=== PATIENT | male | born 1935 | race Caucasian/White ===

== ENCOUNTER → 2016-12-04 | Outpatient (REF) | payer MEDICARE, OTHER ==
[~2016-12-04] MED LIST: /ESOM40CA OR; ASPI81TA45 OR; ATEN25TA OR; CRES5TAB OR; DIOV160T5 OR; METF500T4 OR; NEUR300C OR; PLAV75TA2 OR; ZOLO25TA OR
[2016-12-05 12:57] LABS: PERCENT SATURATION 41.8 % (19.7-37.4)
== END ==
LOC: M LAB REF 12:00
PROVIDERS: ATTEND Internal Medicine
DX: D50.9 Iron deficiency anemia, unspecified (principal)

== ENCOUNTER → 2017-01-25 | Outpatient (CLI) | payer MEDICARE, OTHER ==
[~2017-01-25] VITALS: Ht 175.3 cm; Wt 106.0 kg
[~2017-01-25] MED LIST changes: +ACET500T37 PO; +ALBU17IN2 INH; +AMLO5TAB2 PO; +ASPIRIN 81 MG CHEW TABLET As Ordered ONE; +ASPIRIN 81 MG CHEW TABLET PO ONE; +FERR325T16 PO; +LIDOCAINE 2% INJ 100 MG/5 ML SDV (FOR ANES.) As Ordered ONE; +NS 1,000 ML IV SCH; +PROPOFOL 200 MG/20 ML VIAL As Ordered ONE; +VITA200016 PO; +VITA500C24 PO; +[UNRECOGNIZED DRUG - CODE] PO
--- NOTE | 2017-01-25 09:02 | ROOR ---
Patient Name: Zak Patel Procedure Date: 01/25/2017 8:33 AM Date of : 1935 Age: 81 Room: [facility] Gender: Male Note Status: Finalized Procedure: Colonoscopy Indications: High risk colon cancer surveillance: Personal history of colonic polyps Providers: Zak ESCAMILLA MD Referring MD: Rebekah Okeefe DO Requesting Provider: Medicines: Monitored Anesthesia Care Complications: No immediate complications. Procedure: Pre-Anesthesia Assessment: - The heart rate, respiratory rate, oxygen saturations, blood pressure, adequacy of pulmonary ventilation, and response to care were monitored throughout the procedure. The Colonoscope was introduced through the anus and advanced to the cecum, identified by appendiceal orifice and ileocecal valve. The colonoscopy was performed without difficulty. The patient tolerated the procedure well. The quality of the bowel preparation was good. Findings: The perianal and digital rectal examinations were normal. (EXAM: Complete, PREP:Adequate) Two sessile polyps were found in the sigmoid colon and ascending colon. The polyps were diminutive in size. These polyps were removed with a cold snare. Resection and retrieval were complete. Multiple medium-mouthed diverticula were found in the sigmoid colon. Small Internal Hemorrhoids. The exam was otherwise without abnormality on direct and retroflexion views. Impression: - Two diminutive polyps in the sigmoid colon and in the ascending colon, removed with a cold snare. Resected and retrieved. - Diverticulosis in the sigmoid colon. - Small Internal Hemorrhoids. - The examination was otherwise normal on direct and retroflexion views. Recommendation: - Telephone endoscopist for pathology results in 2 weeks. - If the pathology report reveals adenomatous tissue, then repeat the colonoscopy for surveillance in 5 years. - Resume aspirin tomorrow and Plavix (clopidogrel) today at prior doses. Zak Escamilla MD Zak ESCAMILLA MD 01/25/2017 9:02:47 AM This report has been signed electronically. Number of Addenda: 0 Note Initiated On: 01/25/2017 8:33 AM Estimated Blood Loss: Estimated blood loss: none.
[2017-01-25 09:20] VITALS: BP 123/72
== END | disposition home or self-care (01) ==
LOC: M OPP 07:10
PROVIDERS: ATTEND Internal Medicine Gastroenterology
DX: Z12.11 Encounter for screening for malignant neoplasm of colon (principal); D12.5 Benign neoplasm of sigmoid colon; D12.2 Benign neoplasm of ascending colon; K57.30 Diverticulosis of large intestine without perforation or abscess without bleeding; K64.8 Other hemorrhoids; I25.10 Atherosclerotic heart disease of native coronary artery without angina pectoris; I35.0 Nonrheumatic aortic (valve) stenosis; Z98.61 Coronary angioplasty status; Z95.5 Presence of coronary angioplasty implant and graft; I10 Essential (primary) hypertension; E78.00 Pure hypercholesterolemia, unspecified; E11.9 Type 2 diabetes mellitus without complications; K21.9 Gastro-esophageal reflux disease without esophagitis; Z88.0 Allergy status to penicillin; Z88.7 Allergy status to serum and vaccine; Z91.040 Latex allergy status; Z88.8 Allergy status to other drugs, medicaments and biological substances; Z79.82 Long term (current) use of aspirin; Z79.01 Long term (current) use of anticoagulants; Z79.899 Other long term (current) drug therapy; Z80.8 Family history of malignant neoplasm of other organs or systems

== ENCOUNTER → 2017-05-30 | Outpatient (REF) | payer MEDICARE, OTHER ==
[~2017-05-30] MED LIST changes: +ACET-683 PO; -ACET500T37 PO; -ASPIRIN 81 MG CHEW TABLET As Ordered ONE; -ASPIRIN 81 MG CHEW TABLET PO ONE; -LIDOCAINE 2% INJ 100 MG/5 ML SDV (FOR ANES.) As Ordered ONE; -NS 1,000 ML IV SCH; +PRAV20TA2; -PROPOFOL 200 MG/20 ML VIAL As Ordered ONE; +TAMSULOSIN
== END ==
LOC: M SMT 17:21
PROVIDERS: ATTEND Nurse Practitioner Women's Health
DX: N40.0 Benign prostatic hyperplasia without lower urinary tract symptoms (principal)
CPT/HCPCS: 51798; 81001; 87086; G0463

== ENCOUNTER 2017-08-07 18:12 | Emergency (ER) | payer MEDICARE, OTHER ==
[~2017-08-07] VITALS: Ht 177.8 cm; Wt 104.5 kg
[~2017-08-07 18:12] MED LIST changes: -PRAV20TA2; -TAMSULOSIN
[2017-08-07] MEDS ORDERED: TAMSULOSIN (18:25)
[2017-08-07] MEDS ORDERED: PRAV20TA2 (18:25)
[2017-08-07 19:46] LABS: BASO % 0.6 % (0.0-1.0); EOS # 0.2 10^3/uL (0.0-0.50); EOS % 2.7 % (0.0-3.0); IMMATURE GRANULOCYTE % 0.3 % (0-0); LYMPH # 1.7 10^3/uL (1.5-4.5); LYMPH % 23.8 % (24.0-44.0); MEAN CORPUSCULAR HEMOGLOBIN 29.7 pg (27.0-33.0); MEAN CORPUSCULAR HGB CONC 32.7 g/dl (32.0-36.5); MEAN CORPUSCULAR VOLUME 90.9 fl (80.0-96.0); MONO % 14.2 % (0.0-5.0); NEUTROPHILS # 4.2 10^3/uL (1.8-7.7); NEUTROPHILS % 58.4 % (36.0-66.0); PLATELET COUNT, AUTOMATED 224 10^3/uL (150-450); RED CELL DISTRIBUTION WIDTH 12.9 % (11.5-14.5); WHITE BLOOD COUNT 7.1 10^3/uL (4.0-10.0)
[2017-08-07 20:02] LABS: INR 0.97
[2017-08-07 20:13] LABS: ALBUMIN/GLOBULIN RATIO 1.29 (1.00-1.93); BILIRUBIN,DIRECT 0.1 MG/DL (0.0-0.2); BILIRUBIN,TOTAL 0.4 MG/DL (0.2-1.0); CALCIUM LEVEL 9.2 MG/DL (8.8-10.2); CREATININE FOR GFR 1.67 MG/DL (0.70-1.30); GLOMERULAR FILTRATION RATE 42.5 (>42); POTASSIUM SERUM 4.5 MEQ/L (3.5-5.1); TOTAL PROTEIN 7.1 GM/DL (6.4-8.2)
[2017-08-07] MEDS ORDERED: ISOVUE-370 76% 100ML VIAL (Q9967) As Ordered ONE (20:43)
[2017-08-07 21:06] VITALS: BP 140/63
--- NOTE | 2017-08-07 22:10 | REPUSA ---
CT of the chest Clinical statement: Chest pain, trauma. Technique: Multiple axial CT images were obtained from the thoracic inlet through the upper abdomen a fter a bolus administration of nonionic intravenous contrast. Coronal and sagittal reconstructions we re also obtained. No comparison is available. Findings: The central pulmonary arteries and thoracic aorta are unremarkable. Thyroid gland is within normal limits. There is no thoracic lymphadenopathy. There are no pericardial or pleural effusions. The lungs are clear. Limited imaging of the upper abdomen does not demonstrate any acute findings. Bi lateral enhancing adrenal nodules are noted. There are no suspicious osseous lesions. Impression: Unremarkable CT examination of the chest. No acute traumatic injury appreciated.
--- NOTE | 2017-08-07 22:10 | REPUSA ---
CLINICAL HISTORY: Trauma. TECHNIQUE: CT chest, abdomen and pelvis with contrast. Total DLP 1127 mGy*cm COMPARISON: No study for comparison is available at the time of interpretation. CT CHEST WITH CONTRAST Great vessels: The aorta is normal caliber. The pulmonary arteries are patent to the extent visualize d. Heart: Normal size, no effusion. Mediastinum: Nontraumatic. Lungs: Clear, without contusion, pneumothorax or effusion. Skeletal thorax: No visible fractures. Shoulder arthrosis, left greater than right. CT ABDOMEN WITH CONTRAST Liver: Nontraumatic. No ductal dilation. Gallbladder: Cholecystectomy. Pancreas: Nontraumatic. No ductal dilation. Spleen: nontraumatic. 12 cm length. Adrenals: Normal. Kidneys: Nontraumatic. No hydronephrosis. Small right renal cyst. Aorta: Nontraumatic. Normal caliber. Bowel loops: Nondistended. Peritoneum: No free air. No ascites. Lumbar spine: Degenerative spondylotic changes at multiple levels. CT PELVIS WITH CONTRAST Pelvis: No visible fracture. Bladder: Nontraumatic. Pelvic organs: Unremarkable. Colon: Multiple colonic diverticula without evidence of diverticulitis. Peritoneum: No free fluid. IMPRESSION: No evidence of acute trauma to the chest, abdomen or pelvis.
[2017-08-07] MEDS ORDERED: OXYCODONE/APAP 5MG/325MG(BULK FOR ED) 1 TABLET PO ONE (22:45)
[2017-08-07] MEDS ORDERED: NS 1,000 ML IV ONE (22:45)
== END 2017-08-08 00:09 | disposition home or self-care (01) ==
LOC: M ED 18:12
DX: S20.212A Contusion of left front wall of thorax, initial encounter (principal); V49.50XA Passenger injured in collision with unspecified motor vehicles in traffic accident, initial encounter; Y92.410 Unspecified street and highway as the place of occurrence of the external cause; Y93.89 Activity, other specified; Y99.9 Unspecified external cause status
CPT/HCPCS: 71260; 74177; 80048; 80076; 85025; 85610; 85730; 86850; 86900; 86901; 93041; 94760; 99284; Q9967

== ENCOUNTER → 2018-01-09 | Outpatient (REF) | payer MEDICARE, OTHER ==
[2018-01-10 14:16] LABS: ANTINUCLEAR ANTIBODIES DIRECT Negative (Negative)
== END ==
LOC: M LAB REF 13:35
DX: F03.90 Unspecified dementia, unspecified severity, without behavioral disturbance, psychotic disturbance, mood disturbance, and anxiety (principal); G60.9 Hereditary and idiopathic neuropathy, unspecified
CPT/HCPCS: 86038

== ENCOUNTER → 2018-04-24 | Outpatient (REF) | payer MEDICARE, OTHER ==
[2018-04-24 14:17] LABS: BASO % 0.5 % (0.0-1.0); EOS # 0.2 10^3/uL (0.0-0.50); EOS % 2.9 % (0.0-3.0); HEMATOCRIT 39.5 % (42.0-52.0); HEMOGLOBIN 12.6 g/dl (13.5-17.5); IMMATURE GRANULOCYTE % 0.5 % (0-3.0); LYMPH # 1.2 10^3/uL (1.5-4.5); LYMPH % 20.6 % (24.0-44.0); MEAN CORPUSCULAR HEMOGLOBIN 28.4 pg (27.0-33.0); MEAN CORPUSCULAR HGB CONC 31.9 g/dl (32.0-36.5); MEAN CORPUSCULAR VOLUME 89.2 fl (80.0-96.0); MONO # 0.7 10^3/uL (0.0-0.8); MONO % 11.8 % (0.0-5.0); NEUTROPHILS # 3.8 10^3/uL (1.8-7.7); NEUTROPHILS % 63.7 % (36.0-66.0); PLATELET COUNT, AUTOMATED 229 10^3/uL (150-450); RED BLOOD COUNT 4.43 10^6/uL (4.30-6.10); RED CELL DISTRIBUTION WIDTH 14.7 % (11.5-14.5); WHITE BLOOD COUNT 5.9 10^3/uL (4.0-10.0)
[2018-04-24 14:31] LABS: VITAMIN B12 LEVEL 1070 PG/ML
[2018-04-24 14:32] LABS: FOLATE 7.7 NG/ML
[2018-04-24 14:46] LABS: ALBUMIN 3.9 GM/DL (3.2-5.2); ALBUMIN/GLOBULIN RATIO 1.15 (1.00-1.93); ALKALINE PHOSPHATASE 73 U/L (45-117); ALT/SGPT 25 U/L (12-78); ANION GAP 10 MEQ/L (8-16); AST/SGOT 18 U/L (7-37); BILIRUBIN,TOTAL 0.6 MG/DL (0.2-1.0); BLOOD UREA NITROGEN 28 MG/DL (7-18); CALCIUM LEVEL 8.7 MG/DL (8.8-10.2); CARBON DIOXIDE LEVEL 24 MEQ/L (21-32); CHLORIDE LEVEL 105 MEQ/L (98-107); CREATININE FOR GFR 1.48 MG/DL (0.70-1.30); GLOMERULAR FILTRATION RATE 48.7 (>35); GLUCOSE, FASTING 98 MG/DL (70-100); POTASSIUM SERUM 4.4 MEQ/L (3.5-5.1); RHEUMATOID FACTOR QUANT < 10.0 IU/ML (<15.0); SODIUM LEVEL 139 MEQ/L (136-145); THYROID STIMULATING HORMONE 0.702 uIU/ML (0.358-3.740); TOTAL PROTEIN 7.3 GM/DL (6.4-8.2)
[2018-04-24 15:21] LABS: ERYTHROCYTE SEDIMENTATION RATE 10 mm/hr (0-20)
[2018-04-28 14:49] LABS: ALBUMIN 4.34 GM/DL (3.29-5.55); ALBUMIN % 59.4 % (55.8-66.1); ALPHA-1-GLOBULIN % 3.8 % (2.9-4.9); ALPHA-1-GLOBULINS 0.28 GM/DL (0.17-0.41); ALPHA-2-GLOBULINS 0.82 GM/DL (0.42-0.99); ALPHA-2-GLOBULINS % 11.2 % (7.1-11.8); BETA-1-GLOBULINS 0.53 GM/DL (0.28-0.60); BETA-1-GLOBULINS % 7.2 % (4.7-7.2); BETA-2-GLOBULINS 0.37 GM/DL (0.19-0.55); GAMMA GLOBULIN % 13.4 % (11.1-18.8); GAMMA GLOBULINS 0.98 GM/DL (0.65-1.58)
[2018-05-03 08:05] LABS: ANTI DOUBLE STRAND-DNA AB 1 IU/mL (0-9); ANTINUCLEAR ANTIBODIES DIRECT Negative (Negative); CERULOPLASMIN 22.7 mg/dL (16.0-31.0); COPPER PLASMA 90 ug/dL (72-166); LEAD BLOOD ADULT 1 ug/dL (0-19); Lyme Disease IgG/IgM Antibodie <0.91 ISR (0.00-0.90); Lyme Disease IgM Ab Quantitati <0.80 index (0.00-0.79); MERCURY LEVEL 1.5 ug/L (0.0-14.9); SJOGREN'S ANTI SS-A <0.2 AI (0.0-0.9); SJOGREN'S ANTI SS-B <0.2 AI (0.0-0.9); VITAMIN B1 LEVEL WHOLE BLOOD 106.4 nmol/L (66.5-200.0); VITAMIN B6,PYRIDOXAL PHOSPHATE 9.4 ug/L (5.3-46.7); VITAMIN E(ALPHA TOCOPHEROL) 8.1 mg/L (9.0-29.0); VITAMIN E(GAMMA TOCOPHEROL) 1.6 mg/L (0.5-4.9)
== END ==
LOC: M LABNEURO 10:29
DX: G31.84 Mild cognitive impairment of uncertain or unknown etiology (principal); Z79.01 Long term (current) use of anticoagulants
CPT/HCPCS: 82525

== ENCOUNTER 2018-11-20 11:07 | Emergency (ER) | payer MEDICARE, OTHER ==
[~2018-11-20] VITALS: Ht 177.8 cm; Wt 98.6 kg
[~2018-11-20 11:07] MED LIST changes: -AMLO5TAB2 PO; +AMLO5TAB6 PO; +PRAV20TA2; +TAMSULOSIN
[2018-11-20] MEDS ORDERED: MAG400TA (11:17)
[2018-11-20] MEDS ORDERED: MEMA1TAB (11:17)
[2018-11-20] MEDS ORDERED: LOSA50TA88 (11:17)
[2018-11-20] MEDS ORDERED: VITA10002 PO (12:20)
[2018-11-20] MEDS ORDERED: ADACEL/BOOSTRIX VACCINE (DIPHTH/PERTUSS/ACELL/TETANUS)0.5ML SYR (90715) IM ONE (13:00)
[2018-11-20] MEDS ORDERED: NORCO, ANEXSIA 5/325MG TABLET (HYDROcodone/ACETAMINOPHEN) PO ONE (13:00)
--- NOTE | 2018-11-20 13:32 | REP ---
Left rib series: Five views including PA chest: History: Injury in a fall. Comparison study: August 15, 2016. Findings: PA chest radiograph shows no evidence of pneumothorax or hydrothorax. Mediastinum is not widened. Heart size is normal. There are degenerative changes in the thoracic spine. Multiple views of the left rib cage demonstrate acute nondisplaced fractures involving the left posterolateral 9th, 10th, and 11th ribs. There are degenerative changes at the left shoulder. Impression: Left 9th through 11th rib fractures nondisplaced, posterolateral. No complication seen. Electronically Signed by Mayur Fishman MD 11/20/2018 10:22 P
[2018-11-20] MEDS ORDERED: NORCOTAB PO (14:10)
[2018-11-20 14:33] VITALS: BP 139/64
== END 2018-11-20 14:48 | disposition home or self-care (01) ==
LOC: M ED 11:07
DX: S22.42XA Multiple fractures of ribs, left side, initial encounter for closed fracture (principal); S51.802A Unspecified open wound of left forearm, initial encounter; W00.1XXA Fall from stairs and steps due to ice and snow, initial encounter; Y92.099 Unspecified place in other non-institutional residence as the place of occurrence of the external cause; Y93.9 Activity, unspecified; Y99.9 Unspecified external cause status; E11.9 Type 2 diabetes mellitus without complications; I25.10 Atherosclerotic heart disease of native coronary artery without angina pectoris; I10 Essential (primary) hypertension; E78.5 Hyperlipidemia, unspecified; J45.909 Unspecified asthma, uncomplicated; Z79.82 Long term (current) use of aspirin; Z79.899 Other long term (current) drug therapy; Z88.7 Allergy status to serum and vaccine; Z88.0 Allergy status to penicillin; Z91.040 Latex allergy status

== ENCOUNTER → 2020-06-24 | Outpatient (REF) | payer MEDICARE, OTHER ==
[~2020-06-24] MED LIST changes: -/ESOM40CA OR; +AMLO1TAB24 PO; -AMLO5TAB6 PO; +CYAN100049 PO; +HYDR-3715 PO; +LOSA50TA88; +MAG400TA; +MEMA1TAB3; +NEXI1CAP3 OR
[2020-06-27 14:20] LABS: PERCENT SATURATION 15.3 % (19.7-50.0)
== END ==
LOC: M LAB REF 11:18
PROVIDERS: ATTEND Internal Medicine
DX: D64.9 Anemia, unspecified (principal)

== ENCOUNTER → 2021-03-21 | Outpatient (REF) | payer MEDICARE, OTHER ==
[~2021-03-21] MED LIST changes: +CHLO125TA; +DONE10TA90; +ESOM40CA35; +FERR324T21 PO; -FERR325T16 PO; -MAG400TA; +MAGN400T35
== END ==
LOC: M LAB REF 20:11
PROVIDERS: ATTEND Physician Assistant Medical
DX: R19.7 Diarrhea, unspecified (principal)

== ENCOUNTER → 2021-03-29 | Outpatient (REF) | payer MEDICARE, OTHER | LOC: M LAB REF 16:10 | PROVIDERS: ATTEND Internal Medicine | DX: R63.4 Abnormal weight loss (principal) ==

== ENCOUNTER → 2021-04-21 | Outpatient (CLI) | payer MEDICARE, OTHER ==
[~2021-04-21] MED LIST changes: +E-Z-GAS II EFFERVESCENT PACKET (SODIUM BICARB./CITRIC ACID/SIMETHICONE) As Ordered ONE; +E-Z-HD 98% w/w 340GM SUSP BTL As Ordered ONE; +E-Z-PAQUE 96% w/w SUSP 176GM BTL As Ordered ONE
--- NOTE | 2021-04-28 11:04 | REP ---
INDICATION: DYSPHAGIA, FAILURE TO THRIVE. COMPARISON: None. TECHNIQUE: The procedure was performed under the direct supervision of Dr. Samuel. The images were reviewed with Dr. Samuel. Liquid barium was given in the erect position as well as liquid barium in the prone oblique position in order to perform a single contrast upper GI examination. A combination of fluoroscopy, spot films and last image hold technology was utilized. 2.3 minutes of fluoro time was utilized for this procedure. FINDINGS: The manager combination film shows no organomegaly or pathological masses. The intestinal gas pattern is non-specific. The oral and pharyngeal stages of deglutition are unremarkable. During esophageal transport there are tertiary waves demonstrated. There is no esophagitis, stricture, mucosal ring or hiatal hernia. Gastroesophageal reflux is not demonstrated on this examination. Within the stomach there are thickened folds which may represent gastritis. There is no melanie ulcer identified. Within the duodenum there are thickened folds which may represent duodenitis. There is no melanie ulcer identified. The visualized portion of the proximal small bowel appears normal in course and caliber. IMPRESSION: 1. There are thickened folds in the stomach which may represent gastritis. 2. There are thickened folds in the duodenum which may represent duodenitis. 3. Tertiary waves. <Electronically signed by Genaro Malone > 04/21/21 1656 <Electronically signed by Ramone Samuel > 04/28/21 1100
== END ==
LOC: M RAD 09:31
PROVIDERS: ATTEND Internal Medicine
DX: R13.10 Dysphagia, unspecified (principal)

== ENCOUNTER → 2021-06-07 | Outpatient (REF) | payer MEDICARE, OTHER ==
[~2021-06-07] MED LIST changes: -E-Z-GAS II EFFERVESCENT PACKET (SODIUM BICARB./CITRIC ACID/SIMETHICONE) As Ordered ONE; -E-Z-HD 98% w/w 340GM SUSP BTL As Ordered ONE; -E-Z-PAQUE 96% w/w SUSP 176GM BTL As Ordered ONE
[2021-06-08 11:36] LABS: PERCENT SATURATION 10.5 % (19.7-50.0)
== END ==
LOC: M LAB REF 09:52
PROVIDERS: ATTEND Internal Medicine
DX: D64.9 Anemia, unspecified (principal)

== ENCOUNTER 2021-07-12 06:48 | Inpatient (IN) | payer MEDICARE, OTHER ==
[~2021-07-12] VITALS: Ht 182.9 cm; Wt 90.0 kg
[~2021-07-12 06:48] MED LIST changes: -DONE10TA90; +DONE10TA90 PO; -ESOM40CA35; +ESOM40CA35 PO; -LOSA50TA88; +LOSA50TA88 PO; -MAGN400T35; +MAGN400T35 PO
[2021-07-12] MEDS: NS 1,000 ML IV SCH ×2 (07:35→17:04)
[2021-07-12 08:04] LABS: HEMATOCRIT 38.1 % (42.0-52.0); HEMOGLOBIN 11.9 g/dl (13.5-17.5); LYMPH # 0.4 10^3/uL (1.5-5.0); LYMPH % 13.8 % (24.0-44.0); MEAN CORPUSCULAR HEMOGLOBIN 28.4 pg (27.0-33.0); MEAN CORPUSCULAR HGB CONC 31.2 g/dl (32.0-36.5); MEAN CORPUSCULAR VOLUME 90.9 fl (80.0-96.0); MONO # 0.2 10^3/uL (0.0-0.8); MONO % 8.3 % (2.0-8.0); NEUTROPHILS % 77.5 % (36.0-66.0); PLATELET COUNT, AUTOMATED 126 10^3/uL (150-450); RED BLOOD COUNT 4.19 10^6/uL (4.30-6.10); WHITE BLOOD COUNT 2.5 10^3/uL (4.0-10.0)
--- NOTE | 2021-07-12 08:05 | REP ---
INDICATION: trauma. COMPARISON: None. TECHNIQUE: Left {lower extremity duplex venous scanning is performed from the groin to the ankle level. FINDINGS: The deep veins are anechoic and fully compressible from the groin to the popliteal fossa in the left lower extremity. Color flow imaging is homogeneous. Spectral Doppler interrogation demonstrates intact respiratory variation in flow and normal manual augmentation of flow. There is no evidence of deep vein thrombosis above the knee. There is no evidence of DVT in the visualized calf veins. Doppler interrogation of the contralateral common femoral vein shows normal symmetric respiratory phasicity. IMPRESSION: No evidence of DVT in the left lower extremity femoropopliteal veins. No DVT in the visible portions of the calf veins. <Electronically signed by Felix Fishman > 07/12/21 0823
[2021-07-12 08:19] LABS: OSMOLALITY SERUM 288 MOSM/KG (280-301)
[2021-07-12 08:22] LABS: ALBUMIN 2.8 GM/DL (3.2-5.2); ALT/SGPT 18 U/L (12-78); BILIRUBIN,DIRECT 0.2 MG/DL (0.0-0.2); BILIRUBIN,TOTAL 0.5 MG/DL (0.2-1.0); BLOOD UREA NITROGEN 20 MG/DL (7-18); CALCIUM LEVEL 8.3 MG/DL (8.8-10.2); CARBON DIOXIDE LEVEL 30 MEQ/L (21-32); CHLORIDE LEVEL 105 MEQ/L (98-107); CK-MB VALUE MASS < 1.0 NG/ML (<3.6); CPK CREATINE PHOSPHOKINASE 112 U/L (39-308); CREATININE FOR GFR 1.25 MG/DL (0.70-1.30); GLOMERULAR FILTRATION RATE 58.7 (>35); GLUCOSE, FASTING 96 MG/DL (70-100); MB/CK RELATIVE INDEX 0.89 (< OR =4); POTASSIUM SERUM 4.1 MEQ/L (3.5-5.1); SODIUM LEVEL 142 MEQ/L (136-145); TOTAL PROTEIN 6.1 GM/DL (6.4-8.2); TROPONIN I 0.06 NG/ML (< 0.10)
[2021-07-12 08:54] LABS: RSV AMPLIFICATION NEGATIVE (NEGATIVE)
--- NOTE | 2021-07-12 09:09 | REP ---
INDICATION: trauma COMPARISON: None TECHNIQUE: Four views. No sunrise view was obtained. The patient was unable to flex the knee in order to obtain a sunrise view. FINDINGS: The compartments are symmetric and relatively well maintained. There does appear to be mild patellofemoral joint space narrowing, however, assessment is limited due to the lack of a sunrise view. There is no evidence of an acute fracture, dislocation, or subluxation. Without a sunrise view a subtle patellar fracture cannot be completely ruled out. IMPRESSION: No acute osseous abnormality and limitations as described above. <Electronically signed by Mir Carver > 07/12/21 0924
--- NOTE | 2021-07-12 10:49 | REP ---
INDICATION: trauma. COMPARISON: Comparison MRI study of the brain is from August 15, 2017. TECHNIQUE: Helical scanning is acquired. 5 mm axial images were reformatted. Coronal MPR images were generated. FINDINGS: Preliminary digital washcoat wiper radiograph is unremarkable. The patient is edentulous. On bone window settings there is no evidence of skull fracture. No scalp hematoma is appreciated. There is some partial filling of the ethmoid air cells bilaterally consistent with paranasal sinus mucosal changes. There is moderate vascular calcification in the distal internal carotid arteries bilaterally. On soft tissue window settings, there is moderate generalized volume loss and concordant ventricular enlargement. This is unchanged from the comparison MRI study. There are mild small vessel changes in the periventricular white matter. There is no evidence of intracranial hemorrhage. No extra-axial fluid collection is seen. No mass, edema, or midline shift is seen. No acute infarction is appreciated. IMPRESSION: Generalized volume loss and vascular calcification. Mild small vessel changes. No skull fracture or intracranial injury. No acute intracranial abnormality. <Electronically signed by Felix Fishman > 07/12/21 1491
[2021-07-12] MEDS ORDERED: GLUCOSE 4GM CHEW TABLET PO PRN (11:10)
[2021-07-12] MEDS ORDERED: GLUCAGON INJ 1MG VIAL SC PRN (11:10)
[2021-07-12] MEDS ORDERED: DEXTROSE 50% 50 ML SYRINGE IV PRN (11:10)
--- NOTE | 2021-07-12 11:33 | REP ---
INDICATION: COVID POSITIVE WEAKNESS R/O PNEUMONIA. COMPARISON: Comparison chest x-ray November 20, 2018. TECHNIQUE: Portable upright AP chest radiograph. FINDINGS: The lungs are symmetrically aerated. No infiltrate is appreciated. The pleural angles are sharp. The heart is not enlarged. There is fullness in the right mediastinum at the thoracic inlet indenting the right lateral contour the trachea consistent with enlargement of the right thyroid. This is unchanged. There is radiolucency at the left apex suggesting a small left-sided pneumothorax. A skin fold is also possibility. EKG electrodes are seen. IMPRESSION: No infiltrate seen. Possible very small left-sided pneumothorax versus skin fold. Otherwise no acute disease. Stable right thyroid enlargement. <Electronically signed by Felix Fishman > 07/12/21 0093
[2021-07-12] MEDS ORDERED: VITA200048 PO (12:37)
[2021-07-12] MEDS ORDERED: ROSU5TAB5 PO (12:37)
[2021-07-12] MEDS ORDERED: TRAZ-252 PO (12:37)
[2021-07-12] MEDS ORDERED: PROAAER10 INH (12:37)
[2021-07-12] MEDS ORDERED: ECOT81TA5 PO (12:38)
[2021-07-12 12:39] LABS: INR 1.03; PARTIAL THROMBOPLASTIN TIME 35.5 SECONDS (25.9-37.0); PROTHROMBIN TIME 13.9 SECONDS (12.7-14.5)
[2021-07-12 12:42] LABS: D-DIMER QUANT 694.46 ng/ml (<500)
[2021-07-12] MEDS ORDERED: TAMS1CAP17 PO (12:44)
[2021-07-12] MEDS ORDERED: MEMA10TA19 PO (12:44)
[2021-07-12] MEDS ORDERED: RA T500C2 PO (12:48)
[2021-07-12] MEDS ORDERED: FERR325T82 PO (12:48)
[2021-07-12] MEDS ORDERED: HOME MED LIST COMPLETE! XX SCH (12:55)
[2021-07-12 12:57] LABS: ALBUMIN 2.7 GM/DL (3.2-5.2); BILIRUBIN,DIRECT 0.2 MG/DL (0.0-0.2); BILIRUBIN,TOTAL 0.5 MG/DL (0.2-1.0); C REACTIVE PROTEIN QUANTITATIV 2.83 MG/DL (0.00-0.30); MB/CK RELATIVE INDEX 1.35 (< OR =4); TOTAL PROTEIN 5.9 GM/DL (6.4-8.2); TROPONIN I 0.05 NG/ML (< 0.10)
[2021-07-12 13:08] VITALS: BP 190/72
[2021-07-12] MEDS: HumaLOG INSULIN (NovoLOG) PER UNIT SC SCH ×3 (13:11→20:51)
[2021-07-12 13:22] VITALS: BP 119/69
--- NOTE | 2021-07-12 14:57 | HPEPDOC ---
[facility] Medical History & Physical Date of Admission Jul 12, 2021 Date of Service: Jul 12, 2021 History and Physical CHIEF COMPLAINT: Recurrent falls, weakness ,leg pain Both and daughter have Covid,unable to care for the patient at home HISTORY OF PRESENT ILLNESS: Patient has advanced dementia history is obtained from the patient's 85-year-old male sent by ambulance to the emergency room for evaluation of re current falls and generalized weakness. says that she was diagnosed with coronavirus for the past week and the patient has been exposed to her. He has been increasingly weak with recurrent falls and has had a cough which is nonproductive without fever chills today he has had one episode of diarrhea which was nonbloody nonmucousy without abdominal pain nausea or vomiting. His appetite has been the same he denies any anosmia, dysgeusia, headache, muscle aches, chest pain pressure tightness or shortness of breath. Patient's receive monoclonal antibodies but remains weak and unable to care for the patient at home . Her daughter and son-in-law are both coronavirus positive as well and unable to take care of the patient. Patient's is requesting [facility] placement permanently as she is unable to care for him at home now. Patient denies any prodromal symptoms prior to his fall He has not had any dizziness lightheadedness palpitations prior to the fall. He otherwise denies any changes in appetite bowel habits flank pain dysuria urgency frequency. He complains of generalized weakness and bilateral knee pain status post fall and gait instability needing a walker and 1 person assistance at home. He denies any rash unusual lumps or masses joint pains aside from bilateral knees changes in vision hearing tinnitus vertigo bright red blood per rectum melena black tarry stools coffee-ground emesis. In the emergency room patient was found to be positive for coronavirus, but he remained afebrile with chest x-ray no infiltrate, probable very small pneumothorax versus skinfold. Hospitalist was asked to admit the patient for recurrent falls, gait instability, generalized weakness, bilateral knee pain status post fall, and positive for coronavirus. PAST MEDICAL HISTORY: Coronary artery disease stent placement to LAD 1997, dyslipidemia, type 2 diabetes, arterial hypertension, glaucoma, hiatal hernia, cataract, enlarged prostate with lower urinary tract symptoms, sigmoid colon polyps status post clip, hemorrhoids, herniated disc, depression, left leg gangrene with skin grafting PAST SURGICAL HISTORY: Cataract surgery, laparoscopic cholecystectomy in 2004, hemorrhoidectomy, colonoscopy with sigmoid colon polypectomy and clip, tonsillectomy, back surgery, skin grafting on the left leg secondary to gangrene SOCIAL HISTORY: Lives with at home who has coronavirus and unable to care for him, retired, patient was a smoker but quit in 1995, denies alcohol use or recreational drug use. FAMILY HISTORY: Father with CAD/myocardial infarction in his 70s, valvular disease which was inoperable, and diabetic mother of bone cancer in her 70s. ALLERGIES: Please see below. REVIEW OF SYSTEMS: 10 point review of systems negative aside from positive findings in HPI HOME MEDICATIONS: Please see below. PHYSICAL EXAMINATION: VITAL SIGNS: See below GENERAL APPEARANCE: Appears his stated age in no distress HEENT: No JVD moist mucous membranes positive thyromegaly no carotid bruit CARDIOVASCULAR: S1-S2 regular rate rhythm no S3 LUNGS: Clear to auscultation no wheezing rales or rhonchi air entry is equal bilaterally ABDOMEN: Positive bowel sounds soft nontender nondistended EXTREMITIES: No cyanosis clubbing or pitting edema NEUROLOGIC: Awake alert oriented to person only no expressive or receptive aphasia Speech is fluent. Face is symmetric. Tongue and uvula Are midline. Motor function is 5 out of 5 x 4 extremities gait was not tested negative Babinski bilaterally no pronator drift no dysmetria LABORATORY DATA: See below. IMAGING: See below MICROBIOLOGY: Please see below. ASSESSMENT: 85-year-old male sent by ambulance to the emergency room for evaluation of recurrent falls and generalized weakness. says that she was diagnosed with coronavirus for the past week and the patient has been exposed to her. He has been increasingly weak with recurrent falls and has had a cough which is nonproductive without fever chills today he has had one episode of diarrhea which was nonbloody nonmucousy without abdominal pain nausea or vomiting. His appetite has been the same he denies any anosmia, dysgeusia, headache, muscle aches, chest pain pressure tightness or shortness of breath. Patient's receive monoclonal antibodies but remains weak and unable to care for the patient at home . Her daughter and son-in-law are both coronavirus positive as well and unable to take care of the patient. Patient's is requesting mcf[facility] placement permanently as she is unable to care for him at home now. Patient denies any prodromal symptoms prior to his fall He has not had any dizziness lightheadedness palpitations prior to the fall. He otherwise denies any changes in appetite bowel habits flank pain dysuria urgency frequency. He complains of generalized weakness and bilateral knee pain status post fall and gait instability needing a walker and 1 person assistance at home. He denies any rash unusual lumps or masses joint pains aside from bilateral knees changes in vision hearing tinnitus vertigo bright red blood per rectum melena black tarry stools coffee-ground emesis. In the emergency room patient was found to be positive for coronavirus, but he remained afebrile with chest x-ray no infiltrate, probable very small pneumothorax versus skinfold. Hospitalist was asked to admit the patient for recurrent falls, gait instability, generalized weakness, bilateral knee pain status post fall, and positive for coronavirus. is requesting [facility] placement. Coronavirus positive -Close contacts including the and daughter which are his primary caregivers have tested positive for coronavirus -Monitor for worsening respiratory symptoms, hypoxia -Continuous pulse oximetry -Monitor cardiac and inflammatory markers -Inpatient monoclonal antibody infusion if qualifies Debility with recurrent falls and generalized weakness -Exacerbated by coronavirus -PT OT fall precautions and assisted ambulation only -Activity as tolerated Bilateral knee pain status post fall -Imaging study showed no acute fracture, subluxation -As needed pain medications -Assisted ambulation only -Fall precautions Abnormal CXR -very small ptx vs skin fold -check daily cxr to monitor. if enlarging ptx, will need ct chest and will call thoracic surgery for ptx mgt w chest tube. -monitor for hypoxia or respiratory distress. Pancytopenia -Check peripheral blood smear rule out myelodysplastic syndrome -Check B12 and folate levels -No rash to suspect parvovirus B19 infection -No acute indication for RBC or platelet transfusion -Serial CBC monitoring Coronary artery disease stent placement to LAD 1997 -Resumed home meds -Denies cardiac ischemic symptoms dyslipidemia -Resumed home meds Thyromegaly -check thyroid function tests -thyroid us ordered type 2 diabetes -Consistent carbohydrate diet -Fingersticks [facility] with [facility] sliding scale coverage per protocol -Hypoglycemic protocol arterial hypertension -Resumed home meds glaucoma -Resumed home meds hiatal hernia -Resumed home meds enlarged prostate with lower urinary tract symptoms -Resumed home meds sigmoid colon polyps status post clip, hemorrhoids, status post hemorrhoidectomy -Resumed home meds herniated disc, status post back surgery -Resumed home meds depression -Resumed home meds History of left leg gangrene with skin grafting -Resumed home meds code status: DO NOT INTUBATE Per the ,patient "would not want a machine to keep him as a vegetable. I'm not sure about the heart." will discuss with her daughter and son-in-law if the patient had a previous discussion with them about cpr. HCP: DL STANTON [phone] Disposition: PFS consulted for placement. requesting placement. Vital Signs Vital Signs Date Time Temp Pulse Resp B/P (MAP) Pulse Ox O2 Delivery O2 Flow Rate FiO2 07/12/21 09:48 55 16 07/12/21 09:45 184/72 (109) 07/12/21 09:33 96 Room Air 07/12/21 07:50 99.3 Laboratory Data Labs 24H Laboratory Tests 2 07/12/21 07:15: Immature Granulocyte % (Auto) 0.4, Neutrophils (%) (Auto) 77.5H, Lymphocytes (%) (Auto) 13.8L, Monocytes (%) (Auto) 8.3H, Eosinophils (%) (Auto) 0.0, Basophils (%) (Auto) 0.0, Neutrophils # (Auto) 2.0, Lymphocytes # (Auto) 0.4L, Monocytes # (Auto) 0.2, Eosinophils # (Auto) 0.0, Basophils # (Auto) 0.0, Nucleated Red Blood Cells % (auto) 0.0, Anion Gap 7L, Glomerular Filtration Rate 58.7, Osmolality 288, Lactic Acid Level 0.9, Calcium Level 8.3L, Total Bilirubin 0.5, Direct Bilirubin 0.2, Aspartate Amino Transf (AST/SGOT) 25, Alanine Aminotransferase (ALT/SGPT) 18, Alkaline Phosphatase 66, Ammonia < 10, Total Creatine Kinase 112, Creatine Kinase MB < 1.0, Creatine Kinase MB Relative Index 0.89, Troponin I 0.06, Total Protein 6.1L, Albumin 2.8L, Albumin/Globulin Ratio 0.8 07/12/21 07:21: Coronavirus (COVID-19)(PCR) POSITIVEA, Influenza Type A (RT-PCR) NEGATIVE, Influenza Type B (RT-PCR) NEGATIVE, Respiratory Syncytial Virus (PCR) NEGATIVE CBC/BMP Laboratory Tests 07/12/21 07:15 Home Medications Scheduled Aspirin (Ecotrin) 81 Mg Tablet.dr, 81 MG PO DAILY Cyanocobalamin (Vitamin B-12) (Vitamin B-12) 1,000 Mcg Tab, 1,000 MCG PO DAILY Donepezil HCl (Donepezil HCl) 10 Mg Tablet, 10 MG PO QHS Ergocalciferol (Vitamin D2) (Vitamin D2) 50 Mcg Capsule, 50 MCG PO DAILY Esomeprazole Magnesium (Esomeprazole Magnesium Dr) 40 Mg Capsule.dr, 40 MG PO DAILY Ferrous Sulfate (Iron) 325 Mg Tablet, 325 MG PO DAILY Losartan Potassium (Losartan Potassium) 50 Mg Tab, 50 MG PO QHS Magnesium Oxide (Magnesium Oxide) 400 Mg Tab, 400 MG PO BID Memantine HCl (Memantine HCl) 10 Mg Tablet, 10 MG PO BID Rosuvastatin Calcium (Rosuvastatin Calcium) 5 Mg Tablet, 5 MG PO QHS Tamsulosin Hcl (Tamsulosin HCl) 0.4 Mg Capsule, 0.4 MG PO DAILY Trazodone HCl (Trazodone HCl) 50 Mg Tablet, 50 MG PO QHS Turmeric Root Extract (Turmeric) 500 Mg Capsule, 500 MG PO DAILY Scheduled PRN Acetaminophen (Acetaminophen) 500 Mg Tab, 500 MG PO Q6HP PRN for PAIN LEVEL 1-4 Albuterol Sulfate (Proair Hfa) 8.5 Gm Hfa.aer.ad, 2 PUFF INH Q4H PRN for SOB/WHEEZING Allergies Coded Allergies: Influenza Virus Vaccines (Verified Allergy, Unknown, 03/17/21) Penicillins (Verified Allergy, Unknown, 03/17/21) latex (Verified Allergy, Unknown, 03/17/21) A-FIB/CHADSVASC A-FIB History Current/History of A-Fib/PAF?: No Current PO Anticoag Therapy: No Age/Risk Factor Scoring CHADSVASC: CHADSVASC Response (Comments) Value Age Risk Factor Age >/= 75 years old 2 Gender Risk Factor Male 0 Hx of CHF No 0 Hx of HTN Yes 1 Hx of Stroke/TIA/or VTE No 0 Hx of Diabetes No 0 Hx of Vascular Disease No 0 Total 3 Treatment Treatment ordered: NONE TAURUS MCGRATH MD Jul 12, 2021 11:30
[2021-07-12] MEDS ORDERED: ALBUTEROL 90 MCG/ACT 8GM HFA INHALER INH PRN (15:00)
[2021-07-12] MEDS: TAMSULOSIN 0.4 MG CAP PO SCH (16:58)
[2021-07-12] MEDS: OMEPRAZOLE 20 MG CAP PO SCH (16:59)
[2021-07-12] MEDS: DONEPEZIL 5 MG TAB PO SCH (16:59)
[2021-07-12] MEDS: ASPIRIN 81MG ENTERIC TABLET PO SCH (16:59)
[2021-07-12] MEDS: CYANOCOBALAMIN 500 MCG TAB PO SCH (16:59)
[2021-07-12] MEDS: FERROUS SULFATE 325MG TAB PO SCH (16:59)
[2021-07-12] MEDS: MEMANTINE 5MG TABLET (NAMENDA) PO SCH (20:23)
[2021-07-12] MEDS: ROSUVASTATIN 10 MG TAB (CRESTOR) PO SCH (20:23)
[2021-07-12] MEDS: MAGNESIUM OXIDE 400MG TAB (MAG-OX) PO SCH (20:23)
[2021-07-12] MEDS: traZODone 50 MG TAB PO SCH (20:23)
[2021-07-12] MEDS: LOSARTAN 50MG TABLET PO SCH (20:25)
[2021-07-12 22:00] VITALS: BP 138/67
[2021-07-13] MEDS: NS 1,000 ML IV SCH ×3 (03:43→23:28)
[2021-07-13 05:33] VITALS: BP 149/68
[2021-07-13 07:00] LABS: BASO % 0.3 % (0.0-1.0); HEMATOCRIT 35.5 % (42.0-52.0); HEMOGLOBIN 11.3 g/dl (13.5-17.5); LYMPH # 0.5 10^3/uL (1.5-5.0); LYMPH % 15.1 % (24.0-44.0); MEAN CORPUSCULAR HEMOGLOBIN 28.8 pg (27.0-33.0); MEAN CORPUSCULAR HGB CONC 31.8 g/dl (32.0-36.5); MEAN CORPUSCULAR VOLUME 90.6 fl (80.0-96.0); MONO # 0.3 10^3/uL (0.0-0.8); MONO % 8.5 % (2.0-8.0); NEUTROPHILS # 2.4 10^3/uL (1.5-8.5); NEUTROPHILS % 75.8 % (36.0-66.0); PLATELET COUNT, AUTOMATED 139 10^3/uL (150-450); RED BLOOD COUNT 3.92 10^6/uL (4.30-6.10); WHITE BLOOD COUNT 3.2 10^3/uL (4.0-10.0)
[2021-07-13 07:29] LABS: ALBUMIN 2.4 GM/DL (3.2-5.2); ALT/SGPT 14 U/L (12-78); BILIRUBIN,DIRECT 0.2 MG/DL (0.0-0.2); BILIRUBIN,TOTAL 0.5 MG/DL (0.2-1.0); BLOOD UREA NITROGEN 19 MG/DL (7-18); C REACTIVE PROTEIN QUANTITATIV 5.26 MG/DL (0.00-0.30); CALCIUM LEVEL 7.9 MG/DL (8.8-10.2); CARBON DIOXIDE LEVEL 29 MEQ/L (21-32); CHLORIDE LEVEL 107 MEQ/L (98-107); CK-MB VALUE MASS < 1.0 NG/ML (<3.6); CPK CREATINE PHOSPHOKINASE 161 U/L (39-308); CREATININE FOR GFR 1.27 MG/DL (0.70-1.30); FERRITIN 240 NG/ML (26-388); FREE THYROXINE INDEX 3.2 % (1.4-3.8); GLOMERULAR FILTRATION RATE 57.7 (>35); GLUCOSE, FASTING 82 MG/DL (70-100); LDH LACTATE DEHYDROGENASE 207 U/L (87-241); MB/CK RELATIVE INDEX 0.62 (< OR =4); POTASSIUM SERUM 3.9 MEQ/L (3.5-5.1); SODIUM LEVEL 139 MEQ/L (136-145); T UPTAKE 37 % (33-40); THYROID STIMULATING HORMONE 0.479 uIU/ML (0.358-3.740); THYROXINE (T4) 8.6 UG/DL (4.5-12.0); TROPONIN I 0.04 NG/ML (< 0.10)
[2021-07-13] MEDS: HumaLOG INSULIN (NovoLOG) PER UNIT SC SCH ×4 (07:30→19:58)
--- NOTE | 2021-07-13 07:39 | ECGEPIP ---
[facility] - ED Test Date: 2021-07-12 Pat Name: KARINA STANTON Department: Room: - Gender: Male [employer]ate Teacher: gardenia : 1935 Requested By: Jolie Farley Order Number: [id number] Reading MD: Jolie Farley Measurements Intervals [place] Rate: 55 P: 37 W[place]: 156 QRS: 45 QRSD: 84 T: 43 QT: 418 QTc: 399 Interpretive Statements Sinus bradycardia with sinus arrhythmia decreased rate 03/17/21 Electronically Signed on 07-13-2021 7:39:19 EDT by Jolie Farley
[2021-07-13 08:43] LABS: ERYTHROCYTE SEDIMENTATION RATE 43 mm/hr (0-20)
--- NOTE | 2021-07-13 08:47 | REP ---
INDICATION: ptx vs skin fold -check for resolution. COMPARISON: Comparison chest x-ray July 12, 2021. TECHNIQUE: Portable upright AP chest radiograph. FINDINGS: There is no evidence of pneumothorax on either side on today's chest x-ray suggesting that the previous finding was due to a overlying skin fold. Heart is not enlarged. The aorta is calcific and slightly tortuous as before. On today's chest x-ray, interstitial markings are somewhat increased in the left base. This suggests a subtle infiltrate. No other infiltrate is seen. IMPRESSION: There is no evidence of pneumothorax. There is a suspected interstitial infiltrate developing in the left base. <Electronically signed by Felix Fishman > 07/13/21 [id number]
[2021-07-13 09:00] VITALS: BP 146/63
--- NOTE | 2021-07-13 10:53 | REP ---
INDICATION: unwitnessed fall, hit head. COMPARISON: Comparison CT study is from July 12, 2021. TECHNIQUE: Helical scanning is acquired. 5 mm axial images were reformatted. Coronal MPR images were generated. FINDINGS: Digital preliminary court crier radiograph is unremarkable. Bone window settings show no evidence of skull fracture or bony destructive lesion. Vascular calcification is noted at the skull base. There are mucosal changes in the ethmoid sinuses bilaterally and to a lesser extent in the sphenoid air cells. No intraorbital abnormality is seen. No significant scalp hematoma is appreciated. On soft tissue window settings, there is generalized volume loss and concordant ventricular enlargement unchanged from the comparison CT study. There is no evidence of intracranial hemorrhage, mass, extra-axial fluid collection or midline shift. No infarct is apparent. IMPRESSION: No change from the previous day's CT study. No acute intracranial abnormality. <Electronically signed by Felix Fishman > 07/13/21 1046
[2021-07-13] MEDS: MEMANTINE 5MG TABLET (NAMENDA) PO SCH ×2 (11:19→20:54)
[2021-07-13] MEDS: ASPIRIN 81MG ENTERIC TABLET PO SCH (11:19)
[2021-07-13] MEDS: CYANOCOBALAMIN 500 MCG TAB PO SCH (11:19)
[2021-07-13] MEDS: OMEPRAZOLE 20 MG CAP PO SCH (11:20)
[2021-07-13] MEDS: MAGNESIUM OXIDE 400MG TAB (MAG-OX) PO SCH ×2 (11:21→20:55)
[2021-07-13] MEDS: TAMSULOSIN 0.4 MG CAP PO SCH (11:21)
[2021-07-13] MEDS: DONEPEZIL 5 MG TAB PO SCH (11:21)
[2021-07-13] MEDS: FERROUS SULFATE 325MG TAB PO SCH (11:21)
[2021-07-13] MEDS: ACETAMINOPHEN 500 MG TAB PO PRN (11:21)
[2021-07-13 11:42] VITALS: BP 181/77
--- NOTE | 2021-07-13 12:34 | IPNPDOC ---
Date Seen The patient was seen on 07/13/21. Progress Note SUBJECTIVE: Patient had another fall today with head trauma and weakness repeat CT unchanged no intracranial abnormality or bleed Complains of generalized weakness and gait instability . No fever chills. Still with cough productive of scant white sputum No shortness of breath. PHYSICAL EXAMINATION: VITAL SIGNS: See below GENERAL APPEARANCE: Asleep but arousable HEENT: No JVD moist mucous membranes mild thyromegaly no carotid bruit CARDIOVASCULAR: S1-S2 regular rate rhythm no S3 LUNGS: Clear to auscultation no wheezing rales or rhonchi air entry is equal bilaterally ABDOMEN: Positive bowel sounds soft nontender nondistended EXTREMITIES: No cyanosis clubbing or pitting edema LABORATORY DATA: See below. IMAGING: See below MICROBIOLOGY: Please see below. ASSESSMENT: 85-year-old male sent by ambulance to the emergency room for evaluation of recurrent falls and generalized weakness. says that she was diagnosed with coronavirus for the past week and the patient has been exposed to her. He has been increasingly weak with recurrent falls and has had a cough which is nonpro ductive without fever chills today he has had one episode of diarrhea which was nonbloody nonmucousy without abdominal pain nausea or vomiting. His appetite has been the same he denies any anosmia, dysgeusia, headache, muscle aches, chest pain pressure tightness or shortness of breath. Patient's receive monoclonal antibodies but remains weak and unable to care for the patient at home . Her daughter and son-in-law are both coronavirus positive as well and unable to take care of the patient. Patient's is requesting custodial placement permanently as she is unable to care for him at home now. Patient denies any prodromal symptoms prior to his fall He has not had any dizziness lightheadedness palpitations prior to the fall. He otherwise denies any changes in appetite bowel habits flank pain dysuria urgency frequency. He complains of generalized weakness and bilateral knee pain status post fall and gait instability needing a walker and 1 person assistance at home. He denies any rash unusual lumps or masses joint pains aside from bilateral knees changes in vision hearing tinnitus vertigo bright red blood per rectum melena black tarry stools coffee-ground emesis. In the emergency room patient was found to be positive for coronavirus, but he remained afebrile with chest x-ray no infiltrate, probable very small pneumothorax versus skinfold. Hospitalist was asked to admit the patient for recurrent falls, gait instability, generalized weakness, bilateral knee pain status post fall, and positive for coronavirus. is requesting custodial placement. Coronavirus positive -Close contacts including the and daughter which are his primary caregivers have tested positive for coronavirus -Monitor for worsening respiratory symptoms, hypoxia -Continuous pulse oximetry -Monitor cardiac and inflammatory markers -Inpatient monoclonal antibody infusion ; consent to be given by patient's Debility with recurrent falls and generalized weakness -Exacerbated by coronavirus -PT OT fall precautions and assisted ambulation only -Activity as tolerated -Patient had another fall today with repeat CT head being negative Bilateral knee pain status post fall -Imaging study showed no acute fracture, subluxation -As needed pain medications -Assisted ambulation only -Fall precautions Abnormal CXR -very small ptx vs skin fold -Unchanged chest x-ray Pancytopenia -No acute indication for RBC or platelet transfusion -Serial CBC monitoring Coronary artery disease stent placement to LAD 1997 -Resumed home meds -Denies cardiac ischemic symptoms dyslipidemia -Resumed home meds Thyromegaly -check thyroid function tests -Unable to obtain thyroid ultrasound due to positive coronavirus type 2 diabetes -Consistent carbohydrate diet -Fingersticks [facility] with [facility] sliding scale coverage per protocol -Hypoglycemic protocol arterial hypertension -Resumed home meds glaucoma -Resumed home meds hiatal hernia -Resumed home meds enlarged prostate with lower urinary tract symptoms -Resumed home meds sigmoid colon polyps status post clip, hemorrhoids, status post hemorrhoidectomy -Resumed home meds herniated disc, status post back surgery -Resumed home meds depression -Resumed home meds History of left leg gangrene with skin grafting -Resumed home meds code status: DO NOT INTUBATE Per the ,patient "would not want a machine to keep him as a vegetable. I'm not sure about the heart." will discuss with her daughter and son-in-law if the patient had a previous discussion with them about cpr. HCP: DL STANTON [phone] Disposition: PFS consulted for placement. requesting placement. VS, I&O, 24H, Fishbone Vital Signs/I&O Vital Signs Date Time Temp Pulse Resp B/P (MAP) Pulse Ox O2 Delivery O2 Flow Rate FiO2 9/30/21 11:42 96.8 56 16 181/77 (111) 96 Room Air I&O- Last 24 Hours up to 6 AM 07/13/21 06:00 Intake Total 150 ml Balance 150 ml Laboratory Data 24H LABS Laboratory Tests 2 07/12/21 13:02: Bedside Glucose (Misc Panel) 81L 07/12/21 16:26: Bedside Glucose (Misc Panel) 97 07/12/21 20:49: Bedside Glucose (Misc Panel) 78L 07/13/21 05:05: Bedside Glucose (Misc Panel) 85 07/13/21 06:01: Immature Granulocyte % (Auto) 0.3, Neutrophils (%) (Auto) 75.8H, Lymphocytes (%) (Auto) 15.1L, Monocytes (%) (Auto) 8.5H, Eosinophils (%) (Auto) 0.0, Basophils (%) (Auto) 0.3, Neutrophils # (Auto) 2.4, Lymphocytes # (Auto) 0.5L, Monocytes # (Auto) 0.3, Eosinophils # (Auto) 0.0, Basophils # (Auto) 0.0, Nucleated Red Blood Cells % (auto) 0.0, Erythrocyte Sedimentation Rate 43H, D-Dimer, Quantitative 838.45H, Anion Gap 3L, Glomerular Filtration Rate 57.7, Calcium Level 7.9L, Ferritin 240, Total Bilirubin 0.5, Direct Bilirubin 0.2, Aspartate Amino Transf (AST/SGOT) 25, Alanine Aminotransferase (ALT/SGPT) 14, Alkaline Phosphatase 57, Lactate Dehydrogenase 207, Total Creatine Kinase 161, Creatine Kinase MB < 1.0, Creatine Kinase MB Relative Index 0.62, Troponin I 0.04, C-[place] ctive Protein, Quantitative 5.26H, Total Protein 6.0L, Albumin 2.4L, Albumin/Globulin Ratio 0.7, Thyroid Stimulating Hormone (TSH) 0.479, Free Thyroxine Index 3.2, Thyroxine (T4) 8.6, Triiodothyronine (T3) Uptake 37 07/13/21 11:41: Bedside Glucose (Misc Panel) 90 CBC/BMP Laboratory Tests 07/13/21 06:01 TAURUS MCGRATH MD Jul 13, 2021 12:34
[2021-07-13 12:50] VITALS: BP 164/70
[2021-07-13 15:35] VITALS: BP 176/75
[2021-07-13] MEDS: traZODone 50 MG TAB PO SCH (20:55)
[2021-07-13] MEDS: LOSARTAN 50MG TABLET PO SCH (20:55)
[2021-07-13] MEDS: ROSUVASTATIN 10 MG TAB (CRESTOR) PO SCH (20:55)
[2021-07-13 22:00] VITALS: BP 151/67
[2021-07-14 06:00] VITALS: BP 158/78
[2021-07-14] MEDS: HumaLOG INSULIN (NovoLOG) PER UNIT SC SCH ×4 (07:30→20:31)
--- NOTE | 2021-07-14 08:01 | REP ---
INDICATION: ptx vs skin fold -check for resolution. COMPARISON: July 13, 2021. TECHNIQUE: Portable upright AP chest radiograph. FINDINGS: There is mild linear platelike atelectasis in the left perihilar region. No definite infiltrate is visible today. Interstitial markings are slightly prominent diffusely. Heart is not enlarged. The aorta is somewhat tortuous. IMPRESSION: Left perihilar platelike atelectasis. Slightly prominent interstitial markings diffusely. No focal infiltrate visible. <Electronically signed by Felix Fishman > 07/14/21 0753
[2021-07-14] MEDS: ASPIRIN 81MG ENTERIC TABLET PO SCH (08:35)
[2021-07-14] MEDS: TAMSULOSIN 0.4 MG CAP PO SCH (08:35)
[2021-07-14] MEDS: MEMANTINE 5MG TABLET (NAMENDA) PO SCH ×2 (08:35→20:29)
[2021-07-14] MEDS: MAGNESIUM OXIDE 400MG TAB (MAG-OX) PO SCH ×2 (08:35→20:30)
[2021-07-14] MEDS: DONEPEZIL 5 MG TAB PO SCH (08:36)
[2021-07-14] MEDS: CYANOCOBALAMIN 500 MCG TAB PO SCH (08:36)
[2021-07-14] MEDS: FERROUS SULFATE 325MG TAB PO SCH (08:36)
[2021-07-14] MEDS: OMEPRAZOLE 20 MG CAP PO SCH (08:36)
[2021-07-14] MEDS: NS 1,000 ML IV SCH ×2 (09:15→11:45)
[2021-07-14 09:49] LABS: HEMATOCRIT 34.4 % (42.0-52.0); LYMPH # 0.4 10^3/uL (1.5-5.0); LYMPH % 9.3 % (24.0-44.0); MEAN CORPUSCULAR HEMOGLOBIN 28.6 pg (27.0-33.0); MEAN CORPUSCULAR VOLUME 89.6 fl (80.0-96.0); MONO # 0.3 10^3/uL (0.0-0.8); MONO % 7.7 % (2.0-8.0); NEUTROPHILS # 3.1 10^3/uL (1.5-8.5); NEUTROPHILS % 82.5 % (36.0-66.0); PLATELET COUNT, AUTOMATED 146 10^3/uL (150-450); RED BLOOD COUNT 3.84 10^6/uL (4.30-6.10); WHITE BLOOD COUNT 3.8 10^3/uL (4.0-10.0)
[2021-07-14 10:12] LABS: BLOOD UREA NITROGEN 15 MG/DL (7-18); CALCIUM LEVEL 7.8 MG/DL (8.8-10.2); CARBON DIOXIDE LEVEL 27 MEQ/L (21-32); CHLORIDE LEVEL 107 MEQ/L (98-107); CREATININE FOR GFR 0.95 MG/DL (0.70-1.30); GLOMERULAR FILTRATION RATE > 60.0 (>35); GLUCOSE, FASTING 92 MG/DL (70-100); POTASSIUM SERUM 3.9 MEQ/L (3.5-5.1); SODIUM LEVEL 141 MEQ/L (136-145)
[2021-07-14] MEDS ORDERED: methylPREDNISolone 125MG 2ML VIAL IV PRN (11:45)
[2021-07-14] MEDS ORDERED: ALBUTEROL 90 MCG/ACT 8GM HFA INHALER INH PRN (11:45)
[2021-07-14] MEDS ORDERED: ALBUTEROL SULFATE 2.5 MG/0.5 ML INH NEB SOLN INH PRN (11:45)
[2021-07-14] MEDS ORDERED: ACETAMINOPHEN TAB 650MG DOSE (2X325MG) PO ONE (11:45)
[2021-07-14] MEDS ORDERED: diphenhydrAMINE 50MG/ML VIAL (J1200) IV PRN (11:45)
[2021-07-14] MEDS ORDERED: methylPREDNISolone 125MG 2ML VIAL IV ONE (11:45)
[2021-07-14] MEDS ORDERED: EPINEPHrine INJ 1 MG/ML 1ML AMP IM PRN (11:45)
[2021-07-14] MEDS ORDERED: diphenhydrAMINE 50MG/ML VIAL (J1200) IV ONE (11:45)
--- NOTE | 2021-07-14 11:50 | IPNPDOC ---
Date Seen The patient was seen on 07/14/21. Progress Note SUBJECTIVE: pt was admitted due to recurrent falls and unable to care for him at home and requesting snf placement permanently. pt denies sob, cp, pressure, tightness, cough, fever, chills, n/v/d/abd pain, loss of taste, loss of smell, malaise, muscle aches, headache. He denies any symptoms of coronavirus, but has been exposed to his , daughter, and son -in-law prior to admission. cxr : no infiltrates . He is not hypoxic. has agreed and consented to monoclonal ab to be given. PHYSICAL EXAMINATION: VITAL SIGNS: See below GENERAL APPEARANCE: disoriented to date, but aaox [address]person [address]. HEENT: no stridor moist mm no cervical LAD. CARDIOVASCULAR: S1-S2 regular rate rhythm no S3 LUNGS: Clear to auscultation no wheezing rales or rhonchi air entry is equal bilaterally ABDOMEN: Positive bowel sounds soft nontender nondistended EXTREMITIES: No cyanosis clubbing or pitting edema LABORATORY DATA: See below. IMAGING: See below MICROBIOLOGY: Please see below. ASSESSMENT: 85-year-old male sent by ambulance to the emergency room for evaluation of recurrent falls and generalized weakness. says that she was diagnosed with coronavirus for the past week and the patient has been exposed to her. He has been increasingly weak with recurrent falls and has had a cough which is nonproductive without fever chills today he has had one episode of diarrhea which was nonbloody nonmucousy without abdominal pain nausea or vomiting. His appetite has been the same he denies any anosmia, dysgeusia, headache, muscle aches, chest pain pressure tightness or shortness of breath. Patient's receive monoclonal antibodies but remains weak and unable to care for the patie nt at home . Her daughter and son-in-law are both coronavirus positive as well and unable to take care of the patient. Patient's is requesting long-term placement permanently as she is unable to care for him at home now. Patient denies any prodromal symptoms prior to his fall He has not had any dizziness lightheadedness palpitations prior to the fall. He otherwise denies any changes in appetite bowel habits flank pain dysuria urgency frequency. He complains of generalized weakness and bilateral knee pain status post fall and gait instability needing a walker and 1 person assistance at home. He denies any rash unusual lumps or masses joint pains aside from bilateral knees changes in vision hearing tinnitus vertigo bright red blood per rectum melena black tarry stools coffee-ground emesis. In the emergency room patient was found to be positive for coronavirus, but he remained afebrile with chest x-ray no infiltrate, probable very small pneumothorax versus skinfold. Hospitalist was asked to admit the patient for recurrent falls, gait instability, generalized weakness, bilateral knee pain status post fall, and was incidentally found to be positive for coronavirus due to exposure to , daughter, and son in law. is requesting long-term placement. Coronavirus positive -no symptoms and not hypoxic. cxr: no infiltrates. Debility with recurrent falls and generalized weakness -family requested snf placement. -PT/OT Bilateral knee pain status post fall -Imaging study showed no acute fracture, subluxation -As needed pain medications -Assisted ambulation only -Fall precautions Abnormal CXR -very small ptx vs skin fold -Unchanged chest x-ray Pancytopenia -No acute indication for RBC or platelet transfusion Coronary artery disease stent placement to LAD 1997 -Resumed home meds -Denies cardiac ischemic symptoms dyslipidemia -Resumed home meds Thyromegaly -Unable to obtain thyroid ultrasound due to positive coronavirus type 2 diabetes -Consistent carbohydrate diet -Fingersticks [facility] with [facility] sliding scale coverage per protocol -Hypoglycemic protocol arterial hypertension -Resumed home meds glaucoma -Resumed home meds hiatal hernia -Resumed home meds enlarged prostate with lower urinary tract symptoms -Resumed home meds sigmoid colon polyps status post clip, hemorrhoids, status post hemorrhoidectomy -Resumed home meds herniated disc, status post back surgery -Resumed home meds depression -Resumed home meds History of left leg gangrene with skin grafting -Resumed home meds code status: DO NOT INTUBATE Per the ,patient "would not want a machine to keep him as a vegetable. I'm not sure about the heart." will discuss with her daughter and son-in-law if the patient had a previous discussion with them about cpr. HCP: DL STANTON [phone] Disposition: PFS consulted for placement. requesting placement. VS, I&O, 24H, Fishbone Vital Signs/I&O Vital Signs Date Time Temp Pulse Resp B/P (MAP) Pulse Ox O2 Delivery O2 Flow Rate FiO2 07/14/21 06:00 98.9 59 20 158/78 (104) 91 Room Air I&O- Last 24 Hours up to 6 AM 07/14/21 06:00 Intake Total 2650 ml Output Total 350 ml Balance 2300 ml Laboratory Data 24H LABS Laboratory Tests 2 07/13/21 17:18: Bedside Glucose (Misc Panel) 91 07/13/21 19:49: Bedside Glucose (Misc Panel) 98 07/14/21 05:09: Bedside Glucose (Misc Panel) 83 07/14/21 09:21: Immature Granulocyte % (Auto) 0.5, Neutrophils (%) (Auto) 82.5H, Lymphocytes (%) (Auto) 9.3L, Monocytes (%) (Auto) 7.7, Eosinophils (%) (Auto) 0.0, Basophils (%) (Auto) 0.0, Neutrophils # (Auto) 3.1, Lymphocytes # (Auto) 0.4L, Monocytes # (Auto) 0.3, Eosinophils # (Auto) 0.0, Basophils # (Auto) 0.0, Nucleated Red Blood Cells % (auto) 0.0, Anion Gap 7L, Glomerular Filtration Rate > 60.0, Calcium Level 7.8L CBC/BMP Laboratory Tests 07/14/21 09:21 TAURUS MCGRATH MD Jul 14, 2021 11:50
[2021-07-14] MEDS ORDERED: CASIRIVIMAB/IMDEVIMAB 1,200 MG in NS 250 ML IV ONE (14:00)
[2021-07-14 15:22] VITALS: BP 176/73
[2021-07-14 15:58] VITALS: BP 180/74
[2021-07-14 17:22] VITALS: BP 160/70
[2021-07-14] MEDS: ROSUVASTATIN 10 MG TAB (CRESTOR) PO SCH (20:29)
[2021-07-14] MEDS: traZODone 50 MG TAB PO SCH (20:29)
[2021-07-14] MEDS: LOSARTAN 50MG TABLET PO SCH (20:30)
[2021-07-14 22:00] VITALS: BP 134/61
[2021-07-15 05:50] LABS: HEMATOCRIT 37.9 % (42.0-52.0); HEMOGLOBIN 12.4 g/dl (13.5-17.5); LYMPH # 0.3 10^3/uL (1.5-5.0); MEAN CORPUSCULAR HEMOGLOBIN 28.7 pg (27.0-33.0); MEAN CORPUSCULAR HGB CONC 32.7 g/dl (32.0-36.5); MEAN CORPUSCULAR VOLUME 87.7 fl (80.0-96.0); MONO # 0.1 10^3/uL (0.0-0.8); MONO % 6.5 % (2.0-8.0); NEUTROPHILS # 1.8 10^3/uL (1.5-8.5); PLATELET COUNT, AUTOMATED 169 10^3/uL (150-450); RED BLOOD COUNT 4.32 10^6/uL (4.30-6.10); WHITE BLOOD COUNT 2.2 10^3/uL (4.0-10.0)
[2021-07-15 06:00] VITALS: BP 143/65
[2021-07-15 06:11] LABS: BLOOD UREA NITROGEN 19 MG/DL (7-18); CALCIUM LEVEL 8.5 MG/DL (8.8-10.2); CARBON DIOXIDE LEVEL 25 MEQ/L (21-32); CHLORIDE LEVEL 107 MEQ/L (98-107); CREATININE FOR GFR 1.01 MG/DL (0.70-1.30); GLOMERULAR FILTRATION RATE > 60.0 (>35); GLUCOSE, FASTING 142 MG/DL (70-100); POTASSIUM SERUM 3.7 MEQ/L (3.5-5.1); SODIUM LEVEL 141 MEQ/L (136-145)
[2021-07-15] MEDS: CYANOCOBALAMIN 500 MCG TAB PO SCH (08:25)
[2021-07-15] MEDS: TAMSULOSIN 0.4 MG CAP PO SCH (08:26)
[2021-07-15] MEDS: MAGNESIUM OXIDE 400MG TAB (MAG-OX) PO SCH ×2 (08:26→21:05)
[2021-07-15] MEDS: DONEPEZIL 5 MG TAB PO SCH (08:26)
[2021-07-15] MEDS: ASPIRIN 81MG ENTERIC TABLET PO SCH (08:26)
[2021-07-15] MEDS: FERROUS SULFATE 325MG TAB PO SCH (08:26)
[2021-07-15] MEDS: MEMANTINE 5MG TABLET (NAMENDA) PO SCH ×2 (08:26→21:04)
[2021-07-15] MEDS: OMEPRAZOLE 20 MG CAP PO SCH (08:26)
[2021-07-15] MEDS: HumaLOG INSULIN (NovoLOG) PER UNIT SC SCH ×4 (08:27→21:00)
--- NOTE | 2021-07-15 09:27 | REP ---
INDICATION: ptx vs skin fold -check for resolution. COMPARISON: Comparison chest x-ray July 14, 2021. TECHNIQUE: Portable upright AP chest radiograph. FINDINGS: The lungs are well inflated and free of infiltrate. Pleural angles are sharp. Heart size is borderline. Pulmonary vasculature is not increased. Thoracic aorta is somewhat tortuous. IMPRESSION: Borderline heart size. No acute disease. <Electronically signed by Felix Fishman > 07/15/21 0917
--- NOTE | 2021-07-15 09:43 | IPNPDOC ---
Date Seen The patient was seen on 07/15/21. Progress Note SUBJECTIVE: Admits to chronic cough productive of white sputum."I've been like this for years, " unchanged in sputum production, frequency. pt denies sob, cp, pressure, tightness, fever, chills, n/v/d/abd pain, loss of taste, loss of smell, malaise, muscle aches, headache. He denies any symptoms of coronavirus, but has been exposed to his , daughter, and son -in-law prior to admission. cxr : no infiltrates . He is not hypoxic. has agreed and consented to monoclonal ab, and pt received it yesterday without any adverse reaction. still awaiting snf placement. no other acute medical complaints. Pt wants to talk to his , but does not remember her phone number. PHYSICAL EXAMINATION: VITAL SIGNS: See below GENERAL APPEARANCE: no distress no cyanosis HEENT: no stridor moist mm no cervical LAD.no jvd CARDIOVASCULAR: S1-S2 regular rate rhythm no S3 LUNGS: Clear to auscultation no wheezing rales or rhonchi air entry is equal bilaterally ABDOMEN: Positive bowel sounds soft nontender nondistended EXTREMITIES: No cyanosis clubbing or pitting edema LABORATORY DATA: See below. IMAGING: See below MICROBIOLOGY: Please see below. ASSESSMENT: 85-year-old male sent by ambulance to the emergency room for evaluation of recurrent falls and generalized weakness. says that she was diagnosed with coronavirus for the past week and the patient has been exposed to her. He has been increasingly weak with recurrent falls and has had a cough which is nonproductive without fever chills today he has had one episode of diarrhea which was nonbloody nonmucousy without abdominal pain nausea or vomiting. His appetite has been the same he denies any anosmia, dysgeusia, headache, muscle aches, chest pain pressure tightness or shortness of breath. Patient's receive monoclonal antibodies but remains weak and unable to care for the patient at home . Her daughter and son-in-law are both coronavirus positive as well and unable to take care of the patient. Patient's is requesting halfway placement permanently as she is unable to care for him at home now. Patient denies any prodromal symptoms prior to his fall He has not had any dizziness lightheadedness palpitations prior to the fall. He otherwise denies any changes in appetite bowel habits flank pain dysuria urgency frequency. He complains of generalized weakness and bilateral knee pain status post fall and gait instability needing a walker and 1 person assistance at home. He denies any rash unusual lumps or masses joint pains aside from bilateral knees changes in vision hearing tinnitus vertigo bright red blood per rectum melena black tarry stools coffee-ground emesis. In the emergency room patient was found to be positive for coronavirus, but he remained afebrile with chest x-ray no infiltrate, probable very small pneumothorax versus skinfold. Hospitalist was asked to admit the patient for recurrent falls, gait instability, generalized weakness, bilateral knee pain status post fall, and was incidentally found to be positive for coronavirus due to exposure to , daughter, and son in law. is requesting halfway placement. Coronavirus positive -no symptoms and not hypoxic. cxr: no infiltrates. -s/p monoclonal ab infusion 07/14/21 Debility with recurrent falls and generalized weakness -family requested snf placement. -PT/OT Bilateral knee pain status post fall -Imaging study showed no acute fracture, subluxation -As needed pain medications -Assisted ambulation only -Fall precautions Abnormal CXR -very small ptx vs skin fold -Unchanged chest x-ray Pancytopenia -No acute indication for RBC or platelet transfusion Coronary artery disease stent placement to LAD 1997 -Resumed home meds -Denies cardiac ischemic symptoms dyslipidemia -Resumed home meds Thyromegaly -Unable to obtain thyroid ultrasound due to positive coronavirus type 2 diabetes -Consistent carbohydrate diet -Fingersticks [facility] with [facility] sliding scale coverage per protocol -Hypoglycemic protocol arterial hypertension -Resumed home meds glaucoma -Resumed home meds hiatal hernia -Resumed home meds enlarged prostate with lower urinary tract symptoms -Resumed home meds sigmoid colon polyps status post clip, hemorrhoids, status post hemorrhoidectomy -Resumed home meds herniated disc, status post back surgery -Resumed home meds depression -Resumed home meds History of left leg gangrene with skin grafting -Resumed home meds code status: DO NOT INTUBATE Per the ,patient "would not want a machine to keep him as a vegetable. I'm not sure about the heart." will discuss with her daughter and son-in-law if the patient had a previous discussion with them about cpr. HCP: DL STANTON [phone] Disposition: PFS consulted for placement. requesting placement. change to alc snf status. VS, I&O, 24H, Fishbone Vital Signs/I&O Vital Signs Date Time Temp Pulse Resp B/P (MAP) Pulse Ox O2 Delivery O2 Flow Rate FiO2 07/15/21 06:00 97.2 54 18 143/65 (91) 93 Room Air I&O- Last 24 Hours up to 6 AM 07/15/21 06:00 Intake Total 120 ml Output Total 450 ml Balance -330 ml Laboratory Data 24H LABS Laboratory Tests 2 07/14/21 12:11: Bedside Glucose (Misc Panel) 93 07/14/21 16:46: Bedside Glucose (Misc Panel) 90 07/14/21 20:20: Bedside Glucose (Misc Panel) 153H 07/15/21 05:36: Immature Granulocyte % (Auto) 0.5, Neutrophils (%) (Auto) 81.0H, Lymphocytes (%) (Auto) 12.0L, Monocytes (%) (Auto) 6.5, Eosinophils (%) (Auto) 0.0, Basophils (%) (Auto) 0.0, Neutrophils # (Auto) 1.8, Lymphocytes # (Auto) 0.3L, Monocytes # (Auto) 0.1, Eosinophils # (Auto) 0.0, Basophils # (Auto) 0.0, Nucleated Red Blood Cells % (auto) 0.0, Anion Gap 9, Glomerular Filtration Rate > 60.0, Calcium Level 8.5L CBC/BMP Laboratory Tests 07/15/21 05:36 TAURUS MCGRATH MD Jul 15, 2021 09:43
[2021-07-15] MEDS: NS 1,000 ML IV SCH (12:13)
[2021-07-15 14:00] VITALS: BP 149/65
[2021-07-15] MEDS: traZODone 50 MG TAB PO SCH (21:05)
[2021-07-15] MEDS: LOSARTAN 50MG TABLET PO SCH (21:11)
[2021-07-15] MEDS: ROSUVASTATIN 10 MG TAB (CRESTOR) PO SCH (21:12)
[2021-07-15 22:00] VITALS: BP 137/82
[2021-07-16] MEDS: ACETAMINOPHEN 500 MG TAB PO PRN ×2 (05:10→21:33)
[2021-07-16 05:33] LABS: HEMATOCRIT 37.3 % (42.0-52.0); HEMOGLOBIN 12.4 g/dl (13.5-17.5); LYMPH # 0.5 10^3/uL (1.5-5.0); LYMPH % 9.1 % (24.0-44.0); MEAN CORPUSCULAR HEMOGLOBIN 28.8 pg (27.0-33.0); MEAN CORPUSCULAR HGB CONC 33.2 g/dl (32.0-36.5); MEAN CORPUSCULAR VOLUME 86.5 fl (80.0-96.0); MONO # 0.4 10^3/uL (0.0-0.8); NEUTROPHILS # 4.8 10^3/uL (1.5-8.5); NEUTROPHILS % 83.2 % (36.0-66.0); PLATELET COUNT, AUTOMATED 209 10^3/uL (150-450); RED BLOOD COUNT 4.31 10^6/uL (4.30-6.10); WHITE BLOOD COUNT 5.7 10^3/uL (4.0-10.0)
[2021-07-16 05:59] LABS: BLOOD UREA NITROGEN 24 MG/DL (7-18); CALCIUM LEVEL 8.6 MG/DL (8.8-10.2); CARBON DIOXIDE LEVEL 27 MEQ/L (21-32); CHLORIDE LEVEL 108 MEQ/L (98-107); CREATININE FOR GFR 0.93 MG/DL (0.70-1.30); GLOMERULAR FILTRATION RATE > 60.0 (>35); GLUCOSE, FASTING 117 MG/DL (70-100); POTASSIUM SERUM 3.5 MEQ/L (3.5-5.1); SODIUM LEVEL 141 MEQ/L (136-145)
[2021-07-16] MEDS: DONEPEZIL 5 MG TAB PO SCH (08:22)
[2021-07-16] MEDS: MAGNESIUM OXIDE 400MG TAB (MAG-OX) PO SCH ×2 (08:22→21:32)
[2021-07-16] MEDS: CYANOCOBALAMIN 500 MCG TAB PO SCH (08:22)
[2021-07-16] MEDS: OMEPRAZOLE 20 MG CAP PO SCH (08:22)
[2021-07-16] MEDS: HumaLOG INSULIN (NovoLOG) PER UNIT SC SCH ×4 (08:22→21:00)
[2021-07-16] MEDS: MEMANTINE 5MG TABLET (NAMENDA) PO SCH ×2 (08:22→21:32)
[2021-07-16] MEDS: ASPIRIN 81MG ENTERIC TABLET PO SCH (08:23)
[2021-07-16] MEDS: FERROUS SULFATE 325MG TAB PO SCH (08:23)
[2021-07-16] MEDS: TAMSULOSIN 0.4 MG CAP PO SCH (08:23)
--- NOTE | 2021-07-16 08:43 | REP ---
INDICATION: ptx vs skin fold -check for resolution. COMPARISON: Comparison portable chest x-ray 15 July 2021. TECHNIQUE: Portable upright AP chest radiograph. FINDINGS: The lungs are symmetrically aerated and free of infiltrate. The pleural angles are sharp. Heart size is unchanged and near the upper range of normal. Pulmonary vasculature is not increased. There is no evidence of infiltrate or pneumothorax. IMPRESSION: No active disease. <Electronically signed by Felix Fishman > 07/16/21 1820
[2021-07-16 14:00] VITALS: BP 150/72
--- NOTE | 2021-07-16 14:57 | IPN ---
PROGRESS NOTE DATE: 07/16/2021 SUBJECTIVE: Patient denies any chest pain, pressure, tightness, shortness of breath, fever or chills. He had undergone monoclonal antibody infusion. He has no other coronavirus symptoms. Patient continues to be unstable on his feet, requires assisted ambulation. Family has requested placement. No other issues overnight. PHYSICAL EXAMINATION: VITAL SIGNS: Temperature 97.3, pulse 61, respiratory rate 18, blood pressure 137/82, 94% on room air. GENERAL: Awake, alert, oriented to himself, disoriented to time and place. No distress. HEENT: No jugular venous distention (JVD), thyromegaly or cervical lymphadenopathy. LUNGS: Diminished, but clear to auscultation. No wheezing or rales. HEART: S1, S2. Sinus. ABDOMEN: Soft, nontender, nondistended. EXTREMITIES: No cyanosis or clubbing. LABORATORY DATA/IMAGING STUDIES: Have been reviewed. ASSESSMENT: This is an 85-year-old male with recurrent falls at home, found to be coronavirus positive after being exposed to his , daughter and son-in-law at home with coronavirus, sent to the hospital for placement per family request. IMPRESSION: 1. Debility with gait instability, recurrent falls at home. 2. Coronavirus positive without symptoms of coronavirus and negative chest x-ray for pneumonia. 3. Bilateral knee pain status post fall. 4. Abnormal chest x-ray for possible very small pneumothorax, currently negative for pneumothorax. 5. History of coronary artery disease (CAD) stent to the left anterior descending (LAD). 6. Dyslipidemia. 7. Thyromegaly. Unable to obtain thyroid ultrasound due to positive coronavirus. 8. Type 2 diabetes. 9. Arterial hypertension. 10. Glaucoma. 11. Hiatal hernia. 12. Sigmoid colon polyps. 13. Enlarged prostate with lower urinary tract symptoms. 14. Herniated disc status post back surgery. 15. Depression. 16. Left leg gangrene. 17. History of skin grafting. PLAN: Patient is medically stable. Awaiting correction facility ([facility]) placement per 's request. He is coronavirus positive and has received monoclonal antibodies. He currently does not have any symptoms of coronavirus. Assisted ambulation and fall precautions. [facility]
[2021-07-16 20:00] VITALS: BP 137/70
[2021-07-16] MEDS: LOSARTAN 50MG TABLET PO SCH (21:32)
[2021-07-16] MEDS: traZODone 50 MG TAB PO SCH (21:32)
[2021-07-16] MEDS: ROSUVASTATIN 10 MG TAB (CRESTOR) PO SCH (21:33)
[2021-07-17 05:59] LABS: BASO % 0.2 % (0.0-1.0); HEMATOCRIT 37.6 % (42.0-52.0); HEMOGLOBIN 12.1 g/dl (13.5-17.5); LYMPH # 0.6 10^3/uL (1.5-5.0); LYMPH % 14.1 % (24.0-44.0); MEAN CORPUSCULAR HEMOGLOBIN 28.5 pg (27.0-33.0); MEAN CORPUSCULAR HGB CONC 32.2 g/dl (32.0-36.5); MEAN CORPUSCULAR VOLUME 88.7 fl (80.0-96.0); MONO # 0.5 10^3/uL (0.0-0.8); MONO % 12.4 % (2.0-8.0); NEUTROPHILS % 72.8 % (36.0-66.0); PLATELET COUNT, AUTOMATED 193 10^3/uL (150-450); RED BLOOD COUNT 4.24 10^6/uL (4.30-6.10); WHITE BLOOD COUNT 4.1 10^3/uL (4.0-10.0)
[2021-07-17 06:00] VITALS: BP 160/70
[2021-07-17 06:24] LABS: BLOOD UREA NITROGEN 26 MG/DL (7-18); CARBON DIOXIDE LEVEL 30 MEQ/L (21-32); CHLORIDE LEVEL 107 MEQ/L (98-107); CREATININE FOR GFR 0.92 MG/DL (0.70-1.30); GLOMERULAR FILTRATION RATE > 60.0 (>35); GLUCOSE, FASTING 95 MG/DL (70-100); POTASSIUM SERUM 3.4 MEQ/L (3.5-5.1); SODIUM LEVEL 142 MEQ/L (136-145)
[2021-07-17] MEDS: HumaLOG INSULIN (NovoLOG) PER UNIT SC SCH ×4 (07:21→21:00)
[2021-07-17] MEDS: MEMANTINE 5MG TABLET (NAMENDA) PO SCH ×2 (08:56→21:43)
[2021-07-17] MEDS: DONEPEZIL 5 MG TAB PO SCH (08:57)
[2021-07-17] MEDS: OMEPRAZOLE 20 MG CAP PO SCH (08:57)
[2021-07-17] MEDS: TAMSULOSIN 0.4 MG CAP PO SCH (08:57)
[2021-07-17] MEDS: MAGNESIUM OXIDE 400MG TAB (MAG-OX) PO SCH ×2 (08:57→21:43)
[2021-07-17] MEDS: CYANOCOBALAMIN 500 MCG TAB PO SCH (08:57)
[2021-07-17] MEDS: ASPIRIN 81MG ENTERIC TABLET PO SCH (08:57)
[2021-07-17] MEDS: FERROUS SULFATE 325MG TAB PO SCH (08:57)
[2021-07-17] MEDS: LOSARTAN 50MG TABLET PO SCH (21:43)
[2021-07-17] MEDS: traZODone 50 MG TAB PO SCH (21:43)
[2021-07-17] MEDS: ROSUVASTATIN 10 MG TAB (CRESTOR) PO SCH (21:43)
[2021-07-17] MEDS: ACETAMINOPHEN 500 MG TAB PO PRN (21:44)
[2021-07-18 06:00] VITALS: BP 149/74
[2021-07-18] MEDS: HumaLOG INSULIN (NovoLOG) PER UNIT SC SCH ×2 (07:27→12:00)
[2021-07-18] MEDS: TAMSULOSIN 0.4 MG CAP PO SCH (08:49)
[2021-07-18] MEDS: FERROUS SULFATE 325MG TAB PO SCH (08:49)
[2021-07-18] MEDS: ASPIRIN 81MG ENTERIC TABLET PO SCH (08:49)
[2021-07-18] MEDS: OMEPRAZOLE 20 MG CAP PO SCH (08:49)
[2021-07-18] MEDS: CYANOCOBALAMIN 500 MCG TAB PO SCH (08:50)
[2021-07-18] MEDS: MAGNESIUM OXIDE 400MG TAB (MAG-OX) PO SCH ×2 (08:50→21:46)
[2021-07-18] MEDS: MEMANTINE 5MG TABLET (NAMENDA) PO SCH ×2 (08:50→21:46)
[2021-07-18] MEDS: DONEPEZIL 5 MG TAB PO SCH (08:50)
[2021-07-18] MEDS ORDERED: POTASSIUM CHLORIDE 10MEQ SR TABLET PO ONE (12:50)
[2021-07-18] MEDS: traZODone 50 MG TAB PO SCH (21:46)
[2021-07-18 21:47] VITALS: BP 159/74
[2021-07-18] MEDS: ROSUVASTATIN 10 MG TAB (CRESTOR) PO SCH (21:47)
[2021-07-18] MEDS: LOSARTAN 50MG TABLET PO SCH (21:47)
[2021-07-19 05:52] VITALS: BP 151/68
[2021-07-19] MEDS: TAMSULOSIN 0.4 MG CAP PO SCH (08:00)
[2021-07-19] MEDS: FERROUS SULFATE 325MG TAB PO SCH (08:00)
[2021-07-19] MEDS: ASPIRIN 81MG ENTERIC TABLET PO SCH (08:00)
[2021-07-19] MEDS: MEMANTINE 5MG TABLET (NAMENDA) PO SCH ×2 (08:00→19:56)
[2021-07-19] MEDS: CYANOCOBALAMIN 500 MCG TAB PO SCH (08:01)
[2021-07-19] MEDS: MAGNESIUM OXIDE 400MG TAB (MAG-OX) PO SCH ×2 (08:01→19:57)
[2021-07-19] MEDS: OMEPRAZOLE 20 MG CAP PO SCH (08:01)
[2021-07-19] MEDS: DONEPEZIL 5 MG TAB PO SCH (08:01)
[2021-07-19] MEDS: ROSUVASTATIN 10 MG TAB (CRESTOR) PO SCH (19:56)
[2021-07-19] MEDS: ACETAMINOPHEN 500 MG TAB PO PRN (19:57)
[2021-07-19] MEDS: traZODone 50 MG TAB PO SCH (19:57)
[2021-07-19] MEDS: LOSARTAN 50MG TABLET PO SCH (19:57)
[2021-07-20] MEDS: ACETAMINOPHEN 500 MG TAB PO PRN (05:52)
[2021-07-20 06:00] VITALS: BP 147/70
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
[2021-07-20] MEDS: ASPIRIN 81MG ENTERIC TABLET PO SCH (08:29)
[2021-07-20] MEDS: TAMSULOSIN 0.4 MG CAP PO SCH (08:30)
[2021-07-20] MEDS: MAGNESIUM OXIDE 400MG TAB (MAG-OX) PO SCH (08:30)
[2021-07-20] MEDS: FERROUS SULFATE 325MG TAB PO SCH (08:30)
[2021-07-20] MEDS: CYANOCOBALAMIN 500 MCG TAB PO SCH (08:30)
[2021-07-20] MEDS: MEMANTINE 5MG TABLET (NAMENDA) PO SCH (08:30)
[2021-07-20] MEDS: OMEPRAZOLE 20 MG CAP PO SCH (08:30)
[2021-07-20] MEDS: DONEPEZIL 5 MG TAB PO SCH (08:30)
== END 2021-07-20 08:40 | DRG 91 ==
LOC: M ED 06:48 → M ED INP 11:02 → ENRESERV 11:23 → M 4MAIN 12:55 → M MS5PR 07-19 12:55
PROVIDERS: ADMIT General Practice; ATTEND Internal Medicine Nephrology
PROC: XW033H6 Introduction of Other New Technology Monoclonal Antibody into Peripheral Vein, Percutaneous Approach, New Technology Group 6 (ICD-10-PCS; principal; 2021-07-14)
DX: R29.6 Repeated falls (principal); U07.1 COVID-19; D61.818 Other pancytopenia; R53.1 Weakness; I25.10 Atherosclerotic heart disease of native coronary artery without angina pectoris; E78.5 Hyperlipidemia, unspecified; E11.9 Type 2 diabetes mellitus without complications; I10 Essential (primary) hypertension; H40.9 Unspecified glaucoma; K44.9 Diaphragmatic hernia without obstruction or gangrene; Z98.49 Cataract extraction status, unspecified eye; N40.1 Benign prostatic hyperplasia with lower urinary tract symptoms; Z97.8 Presence of other specified devices; F32.9 Major depressive disorder, single episode, unspecified; Z90.49 Acquired absence of other specified parts of digestive tract; Z98.1 Arthrodesis status; Z87.891 Personal history of nicotine dependence; M25.561 Pain in right knee; M25.562 Pain in left knee; Z95.5 Presence of coronary angioplasty implant and graft; E01.0 Iodine-deficiency related diffuse (endemic) goiter; Z79.82 Long term (current) use of aspirin; Z79.899 Other long term (current) drug therapy; Z88.0 Allergy status to penicillin; Z88.7 Allergy status to serum and vaccine; Z91.040 Latex allergy status; F03.90 Unspecified dementia, unspecified severity, without behavioral disturbance, psychotic disturbance, mood disturbance, and anxiety